=== PATIENT | male | born 1955 | race African-American/Black ===

== ENCOUNTER → 2019-07-18 | Outpatient (CLI) | payer BC ==
[~2019-07-18] MED LIST: LORTAB 5/500 501 TAB PO; MULTI-VITAMIN W1 TA1 PO; ZOCOR 40MG40 MG PO
== END ==
LOC: COL.RAD 07:56
DX: I71.4 Abdominal aortic aneurysm, without rupture (principal)

== ENCOUNTER → 2020-01-18 | Outpatient (CLI) | payer BC | LOC: COL.RAD 08:45 | DX: Z13.6 Encounter for screening for cardiovascular disorders (principal); Z87.891 Personal history of nicotine dependence; I71.4 Abdominal aortic aneurysm, without rupture ==

== ENCOUNTER → 2023-11-04 | Outpatient (CLI) | payer MEDICARE | LOC: COL.RAD 09:32 | DX: I71.40 Abdominal aortic aneurysm, without rupture, unspecified (principal); I70.201 Unspecified atherosclerosis of native arteries of extremities, right leg | CPT/HCPCS: Q9967 ==

== ENCOUNTER → 2023-11-30 | Outpatient (CLI) | payer MEDICARE | LOC: COL.RAD 07:29 | DX: I71.43 Infrarenal abdominal aortic aneurysm, without rupture (principal); I77.1 Stricture of artery | CPT/HCPCS: Q9967 ==